=== PATIENT | male | born 1975 | race Caucasian/White ===

== ENCOUNTER 2022-08-21 03:27 | Emergency (ER) | payer BC ==
[2022-08-21] MEDS ORDERED: Labetalol 20 MG/4 ML Syringe IV ONE (17:05)
[2022-08-21] MEDS ORDERED: HYDROmorphone 0.5 MG/0.5 ML Syringe IV ONE (19:00)
[2022-08-21] MEDS ORDERED: Labetalol 20 MG/4 ML Syringe IVPUSH ONE (20:05)
[2022-08-21] MEDS ORDERED: Iopamidol 612 MG/ML 100 ML Bottle IV ONE (20:33)
[2022-09-14 11:10] LABS: ANION GAP 11.5 mEq/L (7-13); CHLORIDE,CL 104 mmol/L (98-107); ESTIMATED GFR 74 mL/min (>=60); SODIUM,NA 141 mmol/L (136-145)
== END 2022-08-21 21:38 | disposition home or self-care (01) ==
LOC: DL.ED 03:27
DX: U07.1 COVID-19 (principal); I10 Essential (primary) hypertension
CPT/HCPCS: 36415; 70450; 74177; 80053; 83605; 83735; 84145; 84439; 84443; 84484; 85025; 86140; 87040; 93005; 96374; 96375; 99285-25; Q9967; U0002